=== PATIENT | female | born 1955 | race Caucasian/White ===

== ENCOUNTER → 2018-04-02 | Outpatient (CLI) | payer BC ==
--- NOTE | 2018-04-03 15:31 | PCVCIMAG ---
APPROVED REPORT Study performed: 04/02/2018 16:10:23 Exam: Stress Echocardiogram Indication: Hyperlipidemia, Hypertension Patient Location: Echo lab Stress Nurse: Sharmin Bahena RN Status: routine Ht: 5 ft 5 in HR: 62 bpm BP: 100/70 mmHg Rhythm: NSR Medical History Medical History: Hyperlipidemia, HTN, Strong Family History Procedure The patient underwent an Exercise Stress Test using the Ian Protocol. Blood pressure, heart rate, and EKG were monitored. An Echocardiogram was performed by biological technician in four stages in quad fashion. At peak stress, four selected images were obtained and placed side by side with resting images for comparison. Stress Test Details Stress Test: Exercise stress testing was performed using a Ian protocol. HR Resting HR: 62 bpmMax Heart Rate (APMHR): 151 bpm Max HR Achieved: 133 bpmTarget HR (85% APMHR): 128 bpm % of APMHR: 88 Recovery HR: 93 bpm HR response to stress: Normal HR response to stress BP Resting BP: 100/70 mmHg Max BP: 146/76 mmHg Recovery BP: 124/60 mmHg BP response to stress: Normal blood pressure response to stress. ECG Resting ECG: Sinus Rhythm Stress ECG: Sinus Rhythm Recovery ECG: Sinus Rhythm Clinical Reason for Termination: Maximal effort Exercise duration: 10 min 10 sec Highest Stage Achieved: Stage 4: 4.2 mph at 16% grade. Exercise capacity: 13.40 METs Overall Exercise Capacity for Age: Normal Pre-Stress Echo The resting Echocardiogram showed normal left ventricular contractility with an estimated Ejection Fraction of about 55-60%. Normal wall motion in all segments on baseline images. Post-Stress Echo The stress Echocardiogram showed normal left ventricular contractility with an estimated Ejection Fraction of about 60-65%. Normal augmentation of wall motion in all segments on post stress images. Clinical No clinical or ECG evidence for ischemia. Conclusion Clinical Response: Non-ischemic Exercise Capacity: Average Stress ECG Response: Non-ischemic Stress Echo Images: Non-ischemic The left ventricle is normal in size. Mild concentric hypertropy is noted with a mild left ventricular outflow gradient. <Conclusion> The left ventricle is normal in size. Mild concentric hypertropy is noted with a mild left ventricular outflow gradient.
== END | disposition home or self-care (01) ==
LOC: EDBD → PCVCIMAG 15:51
PROVIDERS: ATTEND Internal Medicine Cardiovascular Disease
DX: I10 Essential (primary) hypertension (principal); E78.5 Hyperlipidemia, unspecified; R07.9 Chest pain, unspecified; R06.09 Other forms of dyspnea; Z82.49 Family history of ischemic heart disease and other diseases of the circulatory system
CPT/HCPCS: 93325; 93351